=== PATIENT | female | born 1940 | race Caucasian/White ===

== ENCOUNTER 2017-01-02 13:55 | Inpatient (IN) | payer MEDICARE, OTHER ==
--- NOTE | ~2017-01-02 | HP ---
History And Physical [address] [place]. [address] NAME: RICHARD BEAL : 38 STATUS : ADM Jeremy PAT#: [id number] AGE: 76 ADM/REG DATE : 01/02/17 MR#: [id number] REPORT SERV DATE: 01/03/17 DICTATED BY: ARYA MUNOZ DATE: 01/03/17 REPORT STATUS : Draft TRANSCRIBED BY: MODL DATE: 01/03/17 DATE OF ADMISSION: 01/02/2017 CHIEF COMPLAINT: Palpitations and weakness. HISTORY OF PRESENT ILLNESS: The patient is a 76-year-old female with severe oxygen-dependent COPD and a history of paroxysmal atrial fibrillation and atrial flutter. The patient earlier on the day of admission developed acute onset of palpitations with sensation of weakness. Racing sensation in the chest. No chest pain. Emergency medical services were activated and on arrival, the patient was found to be in a rapid rhythm felt consistent with atrial flutter. No rhythm strips nor EKGs are available for review. Due to her severe weakness and tachycardic rhythm, she was administered adenosine by EMS without conversion. She subsequently underwent electrical cardioversion with conversion to sinus rhythm. Emergency room EMS radio report documents reported heart rate as high as 220 beats per minute. Atrial fibrillation written in different handwriting by the ER physician. However, the complaint is listed as "SVT." The patient has prior history of atrial flutter and in September was begun on sotalol with improved symptoms. The patient has chronic dyspnea, is home O2 dependent. She denies any changes in recent respiratory symptoms. Denies fever, chills, cough or productive sputum. PAST MEDICAL HISTORY: 1. Paroxysmal atrial fibrillation. 2. Paroxysmal atrial flutter. 3. Severe COPD, home O2 dependent. 4. Sjogren syndrome. 5. Hypertension. 6. Hyperlipidemia. 7. Diabetes mellitus. 8. Chronic kidney disease. PAST SURGICAL HISTORY: Previous mastectomy and vascular surgery. ALLERGIES: SULFA. FAMILY HISTORY: Family members with history of breast, gastric, and colorectal carcinoma. Multiple family members with hypertension. Patient with similar presentation with atrial flutter in 09/2016. The patient ultimately underwent cardioversion with successful conversion to sinus rhythm. At that time, begun on sotalol. Brother with and myocardial infarction at age 54. ADDITIONAL PAST MEDICAL HISTORY: 1. Coronary artery disease with remote angioplasty and stenting. History And Physical [address] [address] NAME: RICHARD BEAL : 39 STATUS : ADM Jeremy PAT#: [id number] AGE: 76 ADM/REG DATE : 01/02/17 MR#: [id number] REPORT SERV DATE: 01/03/17 DICTATED BY: ARYA MUNOZ DATE: 01/03/17 REPORT STATUS : Draft TRANSCRIBED BY: [facility] DATE: 01/03/17 2. Peripheral vascular disease with previous left subclavian stenting. 3. Low normal left ventricular systolic function by echocardiogram, 08/2016. 4. Breast carcinoma, status post left mastectomy in 2002 with chemotherapy. SOCIAL HISTORY: Remote smoker. REVIEW OF SYSTEMS: Negative for all organ systems except per the history of present illness. PHYSICAL EXAMINATION: VITALS: Blood pressure 131/58, pulse 82, respirations 20 and unlabored, saturating 100% on 4 L nasal cannula, weight 63 kg. GENERAL: Thin, elderly female, no acute distress, wearing nasal cannula oxygen. HEENT: Normal. NECK: Supple, no JVD or bruit, normal carotid upstroke bilaterally, no thyromegaly. LUNGS: Decreased air movement in all lung campo. CARDIOLOGY: Regular rhythm with frequent irregularities. Normal S1, S2. No thrill. No murmur, rubs or gallops, normal PMI. ABDOMEN: Bowel sounds positive, soft, nontender, and nondistended. No masses or aortic bruits. No hepatosplenomegaly or hepatojugular reflux. EXTREMITIES: No edema. Normal pulses. No clubbing or cyanosis. SKIN: Warm and dry, no significant rash. NEUROLOGIC: Alert and oriented x 3. Appropriate mood. LABORATORY DATA: Sodium 139, potassium 3.9, chloride 102, bicarb 19, creatinine 1.17, GFR 52, glucose 212, calcium 8.9, magnesium 2.1. WBC 16.7, hemoglobin 13.9, hematocrit 42.2, platelets 249,000. Troponin 0.04, 0.05, and 0.02. IMPRESSION: 1. Reported episode of atrial flutter with rapid ventricular rate. With subsequent electrical cardioversion to sinus rhythm. We have discontinued sotalol. We have initiated intravenous amiodarone load. 2. Trivial elevations in troponin-demand ischemia event. No evidence of myocardial infarction. 3. Chronic obstructive pulmonary disease-stable. Continue current home medications and oxygen. 4. Chronic anticoagulation. Continue current novel oral anticoagulant. PLAN: For discharge in 24 hours as the patient is stable and doing well and remains in sinus rhythm. CSL/DIOR Leanne Munoz M.D. History And Physical [address] [address] NAME: RICHARD BEAL : 39 STATUS : ADM Jeremy PAT#: [id number] AGE: 76 ADM/REG DATE : 01/02/17 MR#: [id number] REPORT SERV DATE: 01/03/17 DICTATED BY: ARYA MUNOZ DATE: 01/03/17 REPORT STATUS : Draft TRANSCRIBED BY: DIOR DATE: 01/03/17 / [id number] CC: Lainey Melton M.D.
[~2017-01-02 13:55] MED LIST: ADVAIR250 INH; AMARYL1 MG PO; ASAB PO; BETHAN25B PO; CALTRA600D PO; CARDCD360 PO; COREG12 PO; COREG3 PO; CRESTOR10 PO; DALIRESP500 MCG PO; DEMA20 PO; DIOV80 PO; DSS PO; FLOMAX4 PO; FLONASE NAS; FLORASTOR250 MG PO; FORADIL INH; KDUR20 PO; LACT30UDL PO; MEVACOR PO; MOMUD PO; NEUR100 PO; NEXIUM40 PO; NITROQUICK0.4 MG SL; NITROSTAT0.4 MG SL; NOVOLOG SC; P1 PO; P10 PO; PATADAY; PLAQ200B PO; PRADAXA150 MG PO; PRESERVISION A1 EAC1 PO; PRESERVISION A1 EACH PO; PROVENTSOL INH; RECLAST IV; REFRESH OPH; SENTAB PO; SORINE80 MG PO; SPIRIVA INH; T PO; T300 PO; ULTRAM50 PO; VENTOLIN HFA INH; VITAMIN D1000 UNI1 PO; VITAMIN D31000 UNIT PO; ZYRTEC ALLGY10 MG PO; [UNRECOGNIZED DRUG - OTHER] PO
[2017-01-02 13:56] LABS: BASOPHILS 0.1 %; BASOPHILS ABSOLUTE 0.02 10/3/uL (0.0-0.16); EOSINOPHILS 0.3 %; EOSINOPHILS ABSOLUTE 0.05 10/3/uL (0.0-0.53); HEMOGLOBIN 13.9 g/dL (12.0-16.0); IMMATURE GRANULOCYTES 0.4 %; IMMATURE GRANULOCYTES ABSOLUTE 0.07 10/3/uL (0.0-0.11); LYMPHOCYTES 16.5 %; LYMPHOCYTES ABSOLUTE 2.75 10/3/uL (0.67-4.30); MEAN CORPUS HGB CONC 32.9 g/dL (32.0-36.0); MEAN CORPUSCULAR HEMOGLOB 29.3 pg (26.0-34.0); MEAN PLATELET VOLUME 9.7 fL (9.2-13.0); MONOCYTES 9.1 %; MONOCYTES ABSOLUTE 1.52 10/3/uL (0.21-1.20); NEUTROPHILS 73.6 %; NEUTROPHILS ABSOLUTE 12.28 10/3/uL (2.02-8.40); PLATELET COUNT 249 10/3/uL (150-400); RBC DISTRIBUTION WIDTH 17.1 % (12.0-16.0); RED CELL COUNT 4.75 10/6/uL (4.0-5.6); WHITE BLOOD CELLS 16.7 10/3/uL (4.5-10.5)
[2017-01-02 14:02] LABS: HEMATOCRIT 42.2 % (36.0-48.0); MANUAL DIFF NO %; MEAN CORPUSCULAR VOLUME 88.8 fL (80-100)
[2017-01-02 14:04] LABS: INTERNATIONAL NORMAL RATI 1.5 UNITS (-); PROTIME (NOT ORD) 18.2 SEC (12.0-14.5)
[2017-01-02 14:05] LABS: PARTIAL THROMBO TIME 43.9 SEC (22.5-37.2)
[2017-01-02 14:10] LABS: CALCIUM, SERUM 8.9 MG/DL (8.5-10.4); CHEST PAIN PROFILE TAT 0 Hrs 18 Mins; CHLORIDE, SERUM 102 MMOL/L (96-112); CREATININE 1.17 MG/DL (0.55-1.02); GFR AFRICAN AMERICAN 52 ML/MIN (>=60); GFR NON AFRICAN AMERICAN 45 ML/MIN (>=60); POTASSIUM, SERUM 3.9 MMOL/L (3.5-5.3); TROPONIN I 0.04 NG/ML (<0.05)
[2017-01-02 14:12] LABS: BUN (BLOOD UREA NITROGEN) 19 MG/DL (6-23); CO2 (CARBON DIOXIDE) 30 MMOL/L (24-34); GLUCOSE, SERUM 212 MG/DL (60-99); SODIUM, SERUM 139 MMOL/L (135-148)
[2017-01-02 14:17] LABS: ASCORBIC ACID (UR NOT ORDER) 20 (NEG); BILIRUBIN, URINE NEGATIVE (NEG); ER URINALYSIS TAT 0 Hrs 08 Mins; KETONE, URINE NEGATIVE (NEG); LEUKOCYTE ESTERASE(NOT OR NEG (NEG); NITRITE (URINE) NEG (NEG); WBC (NOT ORDERED) (RFLEX) 1 (0-5)
[2017-01-02] MEDS ORDERED: REFRESH OPH (17:05)
[2017-01-04 06:31] LABS: BUN (BLOOD UREA NITROGEN) 15 MG/DL (6-23); CALCIUM, SERUM 9.6 MG/DL (8.5-10.4); CHLORIDE, SERUM 106 MMOL/L (96-112); CO2 (CARBON DIOXIDE) 30 MMOL/L (24-34); CREATININE 0.86 MG/DL (0.55-1.02); GFR AFRICAN AMERICAN 76 ML/MIN (>=60); GFR NON AFRICAN AMERICAN 65 ML/MIN (>=60); GLUCOSE, SERUM 70 MG/DL (60-99); POTASSIUM, SERUM 3.7 MMOL/L (3.5-5.3); SODIUM, SERUM 142 MMOL/L (135-148)
[2017-01-04] MEDS ORDERED: CORDARONE PO (11:47)
[2017-05-25] MEDS ORDERED: HALF81 PO (07:46)
[2017-05-25] MEDS ORDERED: ADVAIR250 INH (07:47)
[2017-05-25] MEDS ORDERED: ALBUTEROL0.083 % INH (07:47)
[2017-05-25] MEDS ORDERED: DSS PO (07:48)
[2017-05-25] MEDS ORDERED: CULTURELLE1 EACH PO (07:48)
[2017-05-25] MEDS ORDERED: CALTRA600D PO (07:48)
[2017-05-25] MEDS ORDERED: PRADAXA75 MG PO (07:49)
[2017-05-25] MEDS ORDERED: NEUR100 PO (07:49)
[2017-05-25] MEDS ORDERED: CARDCD180 PO (07:49)
[2017-05-25] MEDS ORDERED: AMARYL1 MG PO (07:50)
[2017-05-25] MEDS ORDERED: DRONED400 PO (07:50)
[2017-05-25] MEDS ORDERED: NEXIUM40 PO (07:50)
[2017-05-25] MEDS ORDERED: P10 PO (07:51)
[2017-05-25] MEDS ORDERED: KLOR-CON M2020 MEQ PO (07:51)
[2017-05-25] MEDS ORDERED: PRESERVISION A1 EACH PO (07:51)
[2017-05-25] MEDS ORDERED: SPIRIVA INH (07:52)
[2017-05-25] MEDS ORDERED: DEMA10T PO (07:52)
[2017-05-25] MEDS ORDERED: DALIRESP500 MCG PO (07:52)
[2017-05-25] MEDS ORDERED: CRESTOR10 PO (07:52)
[2017-05-25] MEDS ORDERED: VITE PO (07:54)
[2017-05-25] MEDS ORDERED: VITC500 PO (07:54)
[2017-05-25] MEDS ORDERED: [UNRECOGNIZED DRUG - MIXTURE] PO (07:55)
[2017-05-25] MEDS ORDERED: ZYRTEC ALLGY10 MG PO (07:56)
[2017-05-25] MEDS ORDERED: T PO (07:56)
[2017-05-25] MEDS ORDERED: ULTRAM50 PO (07:57)
[2017-05-25] MEDS ORDERED: VENTOLIN HFA INH (07:57)
[2017-05-25] MEDS ORDERED: ATV.5 PO (07:57)
[2017-05-25] MEDS ORDERED: ATRONASAL6 NAS (07:58)
== END 2017-01-04 13:41 | disposition home or self-care (01) | DRG 310 ==
LOC: ER 13:55 → CDU1 18:15 → 5NO 01-03 10:11
PROVIDERS: Emergency Medicine; Internal Medicine Cardiovascular Disease
DX: I48.0 Paroxysmal atrial fibrillation (principal); Z99.81 Dependence on supplemental oxygen; E11.22 Type 2 diabetes mellitus with diabetic chronic kidney disease; J44.9 Chronic obstructive pulmonary disease, unspecified; M35.00 Sjogren syndrome, unspecified; Z79.01 Long term (current) use of anticoagulants; I48.92 Unspecified atrial flutter; E78.5 Hyperlipidemia, unspecified; I12.9 Hypertensive chronic kidney disease with stage 1 through stage 4 chronic kidney disease, or unspecified chronic kidney disease; N18.9 Chronic kidney disease, unspecified; Z88.2 Allergy status to sulfonamides; Z95.5 Presence of coronary angioplasty implant and graft
CPT/HCPCS: 71010; 80048; 81001; 82962; 83735; 84443; 84484; 85025; 85610; 85730; 93005; 94640; 99285; A9270-GY; J0282; J2760; J3473

== ENCOUNTER 2017-02-01 15:25 | Inpatient (IN) | payer MEDICARE, OTHER ==
--- NOTE | ~2017-02-01 | HP ---
History And Physical [address] [facility] [place]. [address] NAME: RICHARD BEAL : 39 STATUS : ADM IN [facility]#: [id number] AGE: 76 ADM/REG DATE : 02/01/17 MR#: [id number] REPORT SERV DATE: 02/02/17 DICTATED BY: SLAVA RODRIGUEZ DATE: 02/02/17 REPORT STATUS : Draft TRANSCRIBED BY: [facility] DATE: 02/02/17 DATE OF ADMISSION: 02/01/2017 CHIEF COMPLAINT: A 76-year-old female, presenting with hypoxic respiratory failure and pneumonia. HISTORY OF PRESENTING ILLNESS: The patient's history was obtained through careful interview with the patient, son-in-law, and neighbor, coupled with review of stylemarks and [facility] medical records. The patient for a few days has had "hoarseness" and some subjective fevers and chills and "something in my chest" that has been rattling with congestion, but she has not been too ill. In fact, on the night prior to admission, she had gone out too late with some friends into the evening and had eaten some ice cream and been at a restaurant. When she got home, she felt full and tired, but not too ill. Then, she recalls that about 4 a.m. in the morning, she felt nauseated, lightheaded, tried to get out of bed and collapsed to the ground. She states that she was on the ground, unable to get up for several hours. In fact, she thinks it was not until the afternoon around 1 p.m. that she was finally able to get up into her bed again and just lay there until family was able to find her. Her neighbor was trying to get a hold of her by telephone throughout the day, but she would not answer, and when her son-in-law and the neighbor finally were able to check on her, they found her lying in the bed completely unresponsive. The son states that she looked purplish with cyanotic changes and ashen and seemed to have respiratory distress. Her O2 saturation was about 70% on room air when the ambulance arrived. The patient had one diarrhea bowel movement last night, and when the family came to check on her, she had lost continence and soiled herself. She describes left hip discomfort, chronic pain, 3 to 4/10 severity, associated with lower back pain as well. No nausea or vomiting now. No fevers or chills now. REVIEW OF SYSTEMS: Otherwise, 14-point review of systems was obtained and was negative. PAST MEDICAL HISTORY: 1. COPD. Seen by Dr. Newberry. 2. Atrial fibrillation. Seen by Dr. Hallman. 3. Coronary artery disease, status post stent placement. 4. Diabetes. 5. Breast cancer, status post surgical resection in 2002 and chemotherapy. History And Physical [address] [address] NAME: RICHARD BEAL : 39 STATUS : ADM IN [facility]#: [id number] AGE: 76 ADM/REG DATE : 02/01/17 MR#: [id number] REPORT SERV DATE: 02/02/17 DICTATED BY: SLAVA RODRIGUEZ DATE: 02/02/17 REPORT STATUS : Draft TRANSCRIBED BY: DIOR DATE: 02/02/17 6. Hypertension. 7. Sjogren's. 8. Left subclavian stent. 9. Colon polyps. Seen by Dr. Oviedo. 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 PAST SURGICAL HISTORY: 1. Mastectomy in 2002. 2. Vascular surgery for left radial artery disease. 3. Cholecystectomy. ALLERGIES: SULFA. SOCIAL HISTORY: Quit smoking years ago. Drinks alcohol socially, but not daily or in excess. Was . Remarried. Now has been a since August 2016. She had lived in [place], [place] until two weeks ago when she moved to a new home in [place] close to her family. She has two children. Her son-in-law is Diaz Ferris, a local physician. 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 FAMILY HISTORY: Breast cancer, gastric cancer, colorectal cancer. Father with acute renal failure. Brother at 54 years of age of myocardial infarction. CURRENT MEDICATIONS: Include Tylenol, albuterol, amiodarone 200 mg p.o. b.i.d., aspirin 81 mg p.o. daily, calcium with vitamin D, Zyrtec 10 mg p.o. daily, vitamin D, Pradaxa 150 mg p.o. b.i.d., diltiazem extended release 360 mg p.o. daily, Nexium 40 mg p.o. daily, Advair inhaled twice a day, Neurontin 200 mg p.o. at bedtime, Amaryl 2 mg every morning, Ativan 0.5 mg p.o. b.i.d., nitroglycerin, potassium 20 mEq p.o. b.i.d., prednisone 10 mg p.o. daily, Daliresp 500 mcg p.o. daily, Crestor 10 mg p.o. daily, Florastor 250 mg p.o. b.i.d., Spiriva inhaled daily, Demadex 20 mg p.o. daily, tramadol 50 mg p.o. b.i.d., multivitamin. PHYSICAL EXAMINATION: VITAL SIGNS: Temperature 98.5, pulse 102, blood pressure 124/46, respiratory rate 34, O2 saturation 79% on 15 L nasal cannula. GENERAL: A very ill and toxic-appearing female, in evidence of distress secondary to shortness of breath. HEENT: Pupils equal, round, and reactive to light. No conjunctival pallor. No scleral icterus. Nares are patent. Oropharynx is clear of obstruction. Dry mucous membranes. Cracking of the lips and tongue. NECK: Trachea midline. No thyromegaly. LYMPH: No cervical lymphadenopathy. No supraclavicular lymphadenopathy. RESPIRATORY: The patient has absent breath sounds at the right base of lung with focal egophony. Scattered rhonchi are noted throughout. No wheezes. No rales. The patient has quite labored respiratory effort, heaving with her abdomen and shoulders. CARDIOVASCULAR: Tachycardic. Regular rhythm. No murmurs, rubs, or gallops. No current extremity edema is appreciated. ABDOMEN: Soft, nontender, nondistended. Normal bowel sounds auscultated throughout. No hepatosplenomegaly. History And Physical [address] [address] NAME: RICHARD BEAL : 39 STATUS : ADM IN [facility]#: [id number] AGE: 76 ADM/REG DATE : 02/01/17 MR#: [id number] REPORT SERV DATE: 02/02/17 DICTATED BY: SLAVA RODRIGUEZ DATE: 02/02/17 REPORT STATUS : Draft TRANSCRIBED BY: DIOR DATE: 02/02/17 DERMATOLOGICAL: Warm and dry extremities. No pallor. No cyanosis. PSYCHIATRIC: A flat affect. Irritable mood. Alert now, but very lethargic. She is poorly oriented to her recent history, but is oriented currently to time and location. LABORATORY DATA: ABG demonstrates pH 7.43, a PaCO2 of 44, a PaO2 of 64, and a bicarb of 29. White blood cell count 27.4 with 50% bands, hemoglobin 12, hematocrit 38, platelets 306. Sodium 144, potassium 3.7, chloride 103, bicarb 34, BUN 23, creatinine 2.03 from baseline creatinine of 0.8, glucose 86. CPK 509. Brain natriuretic peptide 250. Albumin 3.0. Liver enzymes within normal limits. STUDIES: 1. Chest x-ray per my own evaluation shows a dense right peripheral lower lung pneumonia, but also patchy infiltrates throughout bilateral lung campo. 2. EKG by my own evaluation shows sinus tachycardia, premature atrial complexes, and right axis deviation. ASSESSMENT AND PLAN: 1. Severe sepsis. Lactic acid pending. The patient has encephalopathy, acute renal failure, hypoxia, white blood cell count of 27.4, 50% bands, and tachycardia and tachypnea. Check blood cultures. Place on IV antibiotics. Admit to the IMCU. 2. Pneumonia. Check blood cultures. Place on IV cefepime, IV vancomycin. Check swallow studies. 3. Hypoxic respiratory failure. Place on BiPAP. Consult Dr. Newberry, shank rander. 4. Acute renal failure. Place on IV fluids. The patient has mild rhabdomyolysis. We will hold torsemide. 5. Chronic obstructive pulmonary disease exacerbation. Place on IV Solu-Medrol, Duo nebulizers. 6. Atrial fibrillation, chronic. Consult Cardiology per family request, Dr. Hallman. Continue Pradaxa. KPL/MODL Slava Rodriguez M.D. / [id number] CC: Lainey Hancock M.D. Carlos Baleeiro, M.D. Mark Thel, M.D.
--- NOTE | ~2017-02-01 | CN ---
Consultation Report [facility] [address] [place]. [address] NAME: RICHARD STANLEY : 38 STATUS : ADM IN [facility]#: [id number] AGE: 76 ADM/REG DATE : 02/01/17 MR#: [id number] REPORT SERV DATE: 02/02/17 DICTATED BY: JOSE ELIAS HASKINS DATE: 02/02/17 REPORT STATUS : Draft TRANSCRIBED BY: MODL DATE: 02/02/17 CARDIOLOGY CONSULT DATE OF CONSULTATION: 02/02/2017 The patient admitted yesterday to Dr. Mondragon. HISTORY OF PRESENT ILLNESS: Mrs. Stanley is a 76-year-old white female, who has severe COPD, oxygen dependent. She also has history of paroxysmal atrial fibrillation and was here a month ago with rapid rate. Her medicine was adjusted and she was placed on amiodarone and Pradaxa. She comes back in now with pneumonia, sepsis, acute kidney injury, demand troponin of 0.79, and normal sinus rhythm with a heart rate of 84. She tells me a few days ago, she felt her atrial fibrillation racing. PAST MEDICAL HISTORY: Atrial fibrillation, severe COPD, Sjogren's, hypertension, dyslipidemia, diabetes, and chronic kidney disease. ALLERGIES: SULFA. MEDICATIONS: At home include acetaminophen, albuterol, amiodarone 200 mg twice a day, aspirin, calcium D, cetirizine, cholecalciferol, Pradaxa, diltiazem, Nexium, Advair, Neurontin, Amaryl, GenTeal, Ativan, nitroglycerin as needed, potassium, prednisone, Daliresp, Crestor, Florastor, Spiriva, Demodex, tramadol, and multivitamin. SOCIAL HISTORY: She is a nonsmoker. SURGICAL HISTORY: Prior mastectomy and vascular surgery. FAMILY HISTORY: Significant for breast, gastric, and colorectal carcinoma as well as hypertension. REVIEW OF SYSTEMS: Otherwise, all negative. PHYSICAL EXAMINATION: VITAL SIGNS: Her current heart rate is in the 80s. Her blood pressure is around 200 systolic. GENERAL: The patient is a mildly tachypneic white female, alert and oriented x3. HEENT: Pupils equal, round, and reactive to light and accommodation. Extraocular muscles are intact. NECK: Supple. Trachea midline. No carotid bruits. CHEST: She sounds tight with diminished movement of air. HEART: Regular rate and rhythm. No significant murmur. ABDOMEN: Soft, nontender. EXTREMITIES: No clubbing, cyanosis, or edema. Consultation Report [address] [place]. [address] NAME: RICHARD STANLEY : 38 STATUS : ADM IN [facility]#: [id number] AGE: 76 ADM/REG DATE : 02/01/17 MR#: [id number] REPORT SERV DATE: 02/02/17 DICTATED BY: JOSE ELIAS HASKINS DATE: 02/02/17 REPORT STATUS : Draft TRANSCRIBED BY: DIOR DATE: 02/02/17 NEURO: Nonfocal. DATA: We have the EKG that shows sinus rhythm, ventricular rate there around 98, nonspecific ST and T-wave changes in the inferolateral leads. Blood work showing a troponin of 0.79 and her creatinine is above 2. She has a hemoglobin of 8. CLINICAL IMPRESSIONS: 1. Pneumonia, sepsis, acute kidney injury, and demand troponin of 0.79. 2. Oxygen-dependent chronic obstructive pulmonary disease. 3. Chronic atrial fibrillation, on Pradaxa, amiodarone, and calcium channel estrellita. 4. Sjogren's. 5. Hypertension, dyslipidemia, diabetes, chronic kidney disease. 6. Anemia with hemoglobin of 8. PLAN: 1. Decrease Pradaxa 75 mg twice a day given the increasing creatinine and decrease in hemoglobin. 2. Heme check stools. 3. Antibiotics and pulmonary toilet as you are doing. I will follow along with you. F/DIOR Jose Elias Haskins M.D. / [id number] CC: Lainey Hancock M.D. Mark Thel, M.D.
--- NOTE | ~2017-02-01 | IDS ---
Interim Discharge Summary [facility] [address] [place]. [address] NAME: RICHARD BEAL : 38 STATUS : ADM IN [facility]#: [id number] AGE: 76 ADM/REG DATE : 02/01/17 MR#: [id number] REPORT SERV DATE: 02/06/17 DICTATED BY: Alvarez KWONG DATE: 02/06/17 REPORT STATUS : Draft TRANSCRIBED BY: MODL DATE: 02/06/17 ADMISSION DATE: 02/01/2017 DISCHARGE DATE: DIAGNOSES AT THE TIME OF INTERIM SUMMARY: 1. Severe sepsis present on admission, resolved. 2. Dense right pneumonia present on admission, resolved. 3. Acute on chronic respiratory failure with hypoxia. 4. Acute kidney injury, resolved. 5. Coronary artery disease with stents. 6. Chronic atrial fibrillation, on Pradaxa. 7. Insulin-requiring diabetes. ACTIVE CONSULTS: Pulmonology. PROCEDURES: None. BRIEF SUMMARY: 76-year-old female with O2-dependent COPD, was admitted with sepsis and pneumonia on the right side, and placed in intermediate care on intermittent BiPAP and aggressive broad-spectrum antimicrobial therapy with aggressive pulmonary toilet and aggressive bronchodilator therapy. The patient had a very elevated WBC count and procalcitonin on admission on therapy. These numbers have trended toward normal. She is markedly clinically improved and has been transitioned to [address] [place] [address]. She is currently on day 6 or 7 of her IV antimicrobial therapy. Strep and Legionella urinary antigens have been negative, and her cultures have remained negative. The tentative plan at this point is to continue with her aggressive pulmonary care to complete her antibiotic course and have both Physical and Occupational therapy slowly work for her to regain her functional status. It is likely that once her antibiotics are completed, she can be transitioned to the home setting likely with the addition of home health care. We will reassess the patient's plans for discharge after she completes her antimicrobial therapy on 02/07/2017 with possible plans for discharge either on 02/08/2017 or 02/09/2017 depending on her progress. Another member of the hospitalist team will see the patient starting 02/07/2017. We have followup lab work ordered. Her last chest x-ray was done 02/06/2017 and shows clearing of her right-sided infiltrate. PENDING SALE TO [facility]/MODL Alvarez Kwong M.D. / [id number] CC: Alvarez Kwong M.D.
--- NOTE | ~2017-02-01 | CN ---
Consultation Report [facility] [address] [place]. [address] NAME: HORTENCIA STANLEY : 39 STATUS : ADM IN PAT#: [id number] AGE: 76 ADM/REG DATE : 02/01/17 MR#: [id number] REPORT SERV DATE: 02/02/17 DICTATED BY: ULICES WALTERS DATE: 02/02/17 REPORT STATUS : Draft TRANSCRIBED BY: MODL DATE: 02/02/17 CONSULT NOTE DATE OF CONSULTATION: 02/02/2017 CHIEF COMPLAINT: Respiratory failure in a patient with acute right lower lobe pneumonia. HISTORY OF PRESENT ILLNESS: Mrs. Hortencia Stanley is a very pleasant 76-year-old white female with a past medical history significant for atrial fibrillation, COPD, and coronary artery disease, who presents to [facility]'s Emergency Room after being found unresponsive by her family. It should be noted that the patient was hospitalized as recently as December, when she underwent a cardioversion procedure. Mrs. Stanley is followed by Dr. Gorge Newberry, in our outpatient clinic. She is on a pulmonary regimen of albuterol, Advair, and Spiriva, of which she is compliant. She is on chronic oxygen at 2 L. The patient quit smoking approximately fourteen years ago, prior to this time, she smoked about a pack a day for a period of forty years. She denies symptomatology related to obstructive sleep apnea. She describes her exercise tolerance as being somewhat limited, being able to ambulate around her home before needing to stop and take a break. As previously mentioned, the patient has had some issues with her atrial fibrillation as of late. That being said, she has largely done fairly well as an outpatient. More recently, she has began to have some hoarseness in her throat as well as an overall feeling of malaise. This became somewhat worse. She did have an acute episode after dining out with some friends, where she essentially went home and collapsed in the floor. Apparently, she was able to climb back into her bed and was found some time later by her family members. At that time, she was somewhat unresponsive with a reportedly very low oxygen saturation. Emergency Service was called and the patient was brought to the [facility]'s Emergency Room. Upon arrival, she was found to be hypoxemic. Initial blood work [place] [address]. Her procalcitonin was 106.91. She was placed on aggressive antibiotic therapy as well as BiPAP for her hypoxemia and was transferred to the [facility]. For the aforementioned reasons, she has been referred to the Pulmonary Service for further assessment. Currently, Mrs. Stanley is off the BiPAP with good oxygenation saturations on 5 L. She does have some shortness of breath. This is worse on exertion and relieved by rest. She feels some heaviness in her chest. She denies any productive cough at this time. She denies any wheezing in her chest. She denies any recent episodes of hemoptysis. She denies a history of recurrent pneumonias. She does have known COPD. The patient does have known atrial fibrillation as well as coronary artery disease. She currently denies any murmurs, angina, or palpitations. She denies any worsening lower extremity edema, orthopnea, or paroxysmal nocturnal dyspnea. Consultation Report [address] [place]. [address] NAME: HORTENCIA STANLEY : 39 STATUS : ADM IN [facility]#: [id number] AGE: 76 ADM/REG DATE : 02/01/17 MR#: [id number] REPORT SERV DATE: 02/02/17 DICTATED BY: ULICES WALTERS DATE: 02/02/17 REPORT STATUS : Draft TRANSCRIBED BY: DIOR DATE: 02/02/17 In regard to constitutional symptoms, she has had general malaise and fatigue. She currently denies any recent fever or chills. She has no chest pain, abdominal pain, or edema. PAST MEDICAL HISTORY: 1. COPD. 2. Atrial fibrillation. 3. Coronary artery disease. 4. Diabetes mellitus. 5. History of breast cancer. 6. Hypertension. 7. Sjogren's. 8. History of left subclavian stent placement. PAST SURGICAL HISTORY: 1. Cholecystectomy. 2. Mastectomy. 3. Vascular surgery for left subclavian stent placement. FAMILY HISTORY: The patient denies family history of lung disease. SOCIAL HISTORY: The patient is recently . She has two children, who are in good health. 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 She denies any overt or known exposures to dust, silica, or asbestos. TOBACCO/ALCOHOL: As previously mentioned, the patient quit smoking approximately ten years ago, prior to this time, she smoked approximately one pack a day for a period of ten years. She denies any excessive alcohol intake or illicit drug use. MEDICATIONS: Current medications include Amaryl 2 mg, aspirin 81 mg, Cardizem 180 mg, Claritin 10 mg, Cordarone 200 mg, Dulera, DuoNebs, Maxipime, Neurontin 100 mg, Pradaxa 150 mg, Protonix 40 mg, Solu-Cortef 100 mg, vitamin D. ALLERGIES: THE PATIENT HAS KNOWN ALLERGIES TO SULFA. REVIEW OF SYSTEMS: A complete review of systems was performed with pertinent positives and negatives contained within the body of the HPI. PHYSICAL EXAMINATION: VITAL SIGNS: Blood pressure is 97/56, heart rate is 81, T-max is 99.2, respiratory rate is 26, SpO2 is 96% on 5 L nasal cannula. GENERAL: Mrs. Hortencia Stanley is a very pleasant, 76-year-old white female, who is not currently exhibiting any signs of acute distress. SKIN: Skin with appropriate texture and turgor. No rashes, lesions, or ulcers. Consultation Report [address] [address] NAME: HORTENCIA STANLEY : 39 STATUS : ADM IN [facility]#: [id number] AGE: 76 ADM/REG DATE : 02/01/17 MR#: [id number] REPORT SERV DATE: 02/02/17 DICTATED BY: ULICES WALTERS DATE: 02/02/17 REPORT STATUS : Draft TRANSCRIBED BY: DIOR DATE: 02/02/17 HEENT: Head, skull is normocephalic, atraumatic. No masses or lesions. Eyes, sclerae anicteric. Ears, hearing grossly intact. Nose, bilateral nasal patency. Throat, dentition noted. Lips, oral mucosa, tongue, palate, and pharynx somewhat dry. NECK: Neck is supple. THORAX/LUNGS: Thorax is symmetric with equal chest rise. There are few scattered rhonchi and faint expiratory wheezes. Diminished breath sounds in the right lower lung field. CARDIOVASCULAR: Irregular rhythm. Rate controlled. No murmurs, rubs, or gallops. ABDOMEN: Soft. Nondistended, nontender. PERIPHERAL VASCULAR: No edema. MUSCULOSKELETAL: Full AROM and PROM in all joints. NEUROLOGIC: Cranial nerves 2-12 grossly intact. PSYCHIATRIC: The patient demonstrates good judgment and insight. ACCESSORY DATA: Reveals a creatinine of 2.38, procalcitonin is 106.91, lactate is 5.2. BNP is 134.8. Troponin is 0.76. Arterial blood gas reveals a pH of 7.40, PaCO2 of 40, PaO2 of 86, and a bicarb of 24.1 on BiPAP 12/[place] [address], hemoglobin and hematocrit is 8.7 and 28.4. Chest x-ray reveals an acute right lower lobe pneumonia. Echocardiogram performed in 09/2016 reveals a left ventricular ejection fraction of 55%. There is signs of right atrial and ventricular dilation. IMPRESSION: 1. Right-sided acute bacterial pneumonia. 2. Acute exacerbation of chronic obstructive pulmonary disease. 3. Atrial fibrillation. 4. Acute on chronic hypoxemic respiratory failure. 5. Diabetes mellitus. 6. Acute kidney injury. PLAN: 1. At this time, the patient has been appropriately placed on vancomycin and Maxipime. We will recheck a procalcitonin as well as following white blood cell counts for further therapies. We will provide the patient with a flutter valve in hopes to obtaining a sputum culture for Gram stain and sensitivities. We will encourage early mobilization as well as other modes of pulmonary toilet. 2. In regard to the patient's acute exacerbation of COPD, we will provide her steroids, and a full armamentarium of nebulized medications. 3. In regard to the patient's history of arrhythmias, she is currently being seen by the Cardiology Service as well. 4. In regard to her acute kidney injury, we will attempt to fluid resuscitate her as appropriate. The aforementioned impression and plan has been discussed with Dr. Raya, who will follow further recommendations. We thank you for this consult and look forward to participating in the care of Mrs. Stanley. Consultation Report [address] [address] NAME: HORTENCIA STANLEY : 39 STATUS : ADM IN [facility]#: [id number] AGE: 76 ADM/REG DATE : 02/01/17 MR#: [id number] REPORT SERV DATE: 02/02/17 DICTATED BY: ULICES WALTERS DATE: 02/02/17 REPORT STATUS : Draft TRANSCRIBED BY: DIOR DATE: 02/02/17 GBS/MODL Ulices Walters PA-C / [id number] CC: Lainey Hancock M.D.
--- NOTE | ~2017-02-01 | DS ---
Discharge Summary [place] [id number] [place]. [address] NAME: RICHARD STANLEY : 38 STATUS : DIS IN PAT#: [id number] AGE: 76 ADM/REG DATE : 02/01/17 MR#: [id number] REPORT SERV DATE: 02/12/17 DICTATED BY: Alvarez KWONG DATE: 02/11/17 REPORT STATUS : Draft TRANSCRIBED BY: MODL DATE: 02/11/17 ADMISSION DATE: 02/01/2017 DISCHARGE DATE: 02/11/2017 The patient was admitted to the Hospitalist Service. CONSULTANTS: Dr. Bennie Hallman, Cardiology and Dr. Ryan Hernandez, Pulmonology. DISCHARGE DIAGNOSES: 1. Severe sepsis, present on arrival, resolved. 2. Right pneumonia, present on arrival, resolved. 3. Acute on chronic respiratory failure with hypoxia. 4. Acute exacerbation of chronic obstructive pulmonary disease. 5. Chronic atrial fibrillation with paroxysmal atrial tachycardia, now in sinus rhythm. 6. Diabetes mellitus, type 2 with hyperglycemia and hypoglycemia. 7. History of coronary artery disease, status post stents. 8. Hypertension. 9. Acute kidney injury, resolved. Please refer to admission H and P by Dr. Jasvir Mondragon and interim discharge summary by Dr. Ryan Kwong on 02/06/2017. This discharge summary will cover dates 02/07/2017 through 02/11/2017. Briefly Ms. Stanley is a 76-year-old female who is O2-dependent with known COPD. She was admitted to the hospital with sepsis and right-sided pneumonia. Initially, she was placed in the intermediate care unit and was using intermittent BiPAP. She received treatment for her pneumonia with aggressive broad-spectrum antibiotics and aggressive pulmonary toilet with bronchodilator therapy. She has improved significantly and is at her baseline with her respiratory status. I initially saw the patient for the first time on 02/09/2017. She had been experiencing some hypotension earlier in the day. She was started on three new antihypertensives during this hospitalization, which were held on 02/09/2017, these included Avapro and hydralazine. She was also started on metoprolol this admission, we continued that with parameters and was holding her home dose Cardizem as well. Her blood pressure at its lowest was in the 80s systolic and responded nicely with fluid boluses. Her IV antibiotics were discontinued on 02/09/2017. She was also experiencing some hypoglycemia with her 2 mg of Amaryl therefore, the Amaryl was held. Over the next two days, she continued to improve nicely. Her blood pressure was normotensive and remained in the 130s and 140s systolic on 02/10/2017 and on 02/11/2017, 140s to 160s systolic. Therefore, her Cardizem was resumed at half of her home dose at 180 mg p.o. daily. We will also continue her metoprolol, which was started here in the hospital. Her blood glucose this morning was 133. At its lowest yesterday, it was 67 at 6:00 a.m. in the morning. Again, her Amaryl dose was adjusted here in the hospital. Cardiology signed off today and Pulmonary signed off yesterday. When I saw her this morning, she was in no acute distress. She states that she had no shortness of breath or chest pain. No nausea or vomiting. She is eating her breakfast without difficulty and basically at her baseline breathing. Her O2 saturation was 94% on 3 L nasal cannula. Her vital signs again, blood pressure this morning was 167/86, pulse 79, respirations 18. She is afebrile and O2 saturation again 94% on 3 L. Her lungs Discharge Summary [address] [address] NAME: RICHARD STANLEY : 38 STATUS : DIS IN PAT#: [id number] AGE: 76 ADM/REG DATE : 02/01/17 MR#: [id number] REPORT SERV DATE: 02/12/17 DICTATED BY: Alvarez KWONG DATE: 02/11/17 REPORT STATUS : Draft TRANSCRIBED BY: DIOR DATE: 02/11/17 were diminished, we thought she had a few scattered rhonchi. She had an occasional nonproductive cough. Telemetry and auscultation reveals sinus rhythm, heart rate in the 60s. Her abdomen was soft, nontender. All peripheral pulses palpable. No edema, clubbing, or cyanosis. DISCHARGE LABORATORY STUDIES: Basic metabolic panel revealed a sodium of 136, potassium 4.3, chloride 101, BUN 23, creatinine 1.07, GFR 50, glucose 148, calcium 8.8. CBC on 02/10/2017 revealed a white count of 12.3, hemoglobin 10.6, hematocrit 33.1, and platelets 287,000. Therefore, it was felt that Ms. Stanley received maximum treatment and was stable for transfer to [facility] to complete her rehabilitation. Therefore, on the afternoon of 02/11/2017, she was transferred to [facility] in stable condition. DISCHARGE INSTRUCTIONS: 1. Diet: Cardiac 1800 calorie ADA diet is recommended. 2. Activity: PT and OT to evaluate. DISCHARGE MEDICATIONS: 1. Aspirin 81 mg p.o. daily. 2. Caltrate 600 mg plus D p.o. daily with breakfast and supper. 3. Vitamin D3 1000 international units p.o. daily. 4. Pradaxa 150 mg p.o. b.i.d. 5. Multaq 400 mg p.o. b.i.d. 6. Neurontin 200 mg p.o. daily at bedtime. 7. Amaryl 1 mg p.o. daily with breakfast. 8. Sliding scale insulin level 2 q.a.c. with no sliding scale insulin coverage at bedtime. 9. Zyrtec 10 mg p.o. daily. 10.Lopressor 12.5 mg p.o. b.i.d., hold for heart rate of less than 60 and/or systolic blood pressure of less than 110. 11.Nexium 40 mg p.o. daily before breakfast. 12.Spiriva 1 capsule inhaled daily. 13.Deltasone 10 mg p.o. daily with lunch. 14.Albuterol HFA inhaler two puffs b.i.d. p.r.n. 15.Advair Diskus 250/50 one puff b.i.d. 16.Albuterol nebulizer treatments q.4 hours p.r.n. 17.Tylenol 650 mg p.o. or p.r. q.4 hours p.r.n. 18.Dulcolax 10 mg suppository p.r.n. 19.Colace 100 mg p.o. b.i.d. 20.Glucose tabs p.r.n. hypoglycemia protocol. 21.Ativan 0.5 mg p.o. every 6 hours p.r.n. 22.Nitroglycerin 0.4 mg sublingual p.r.n. chest pain. 23.Zofran 4 mg p.o. or sublingual q.4 hours p.r.n. 24.Tramadol 50 mg p.o. t.i.d. p.r.n. 25.Klor-Con 20 mEq daily. 26.Demadex 20 mg p.o. daily. 27.Daliresp 500 mcg p.o. daily with lunch. 28.Cardizem CD 180 mg p.o. daily, hold for systolic blood pressure less than or equal to 120. [facility] provider to adjust as needed. Discharge Summary [address] [address] NAME: RICHARD STANLEY : 38 STATUS : DIS IN PAT#: [id number] AGE: 76 ADM/REG DATE : 02/01/17 MR#: [id number] REPORT SERV DATE: 02/12/17 DICTATED BY: Alvarez KWONG DATE: 02/11/17 REPORT STATUS : Draft TRANSCRIBED BY: DIOR DATE: 02/11/17 29.Crestor 10 mg p.o. daily at bedtime. 30.Florastor 250 mg p.o. b.i.d. 31.GenTeal eye drops four times a day ,both eyes. Other discharge instructions include the patient will follow up with her primary care provider, Dr. Mike Wilson, after discharge from [facility]. She will also follow up with Pulmonary, Anaya Potter, nurse practitioner or Dr. Newberry in three to four weeks. She will also follow up with her quality improvement analyst, Dr. Bennie Hallman in four weeks. DICTATED BY: MARQUISE Santana DICTATED FOR: Lainey Hancock/DIOR MARQUISE Santana Alvarez Kwong M.D. / [id number] CC: Lainey Hancock M.D. Mark Thel, M.D. Carlos Baleeiro, M.D.
[~2017-02-01 15:25] MED LIST changes: +CORDARONE PO
[2017-02-01] MEDS ORDERED: CORDARONE PO (16:08)
[2017-02-01] MEDS ORDERED: ADVAIR250 INH (16:09)
[2017-02-01] MEDS ORDERED: NEUR100 PO (16:10)
[2017-02-01] MEDS ORDERED: PRADAXA150 MG PO (16:10)
[2017-02-01] MEDS ORDERED: ATV.5 PO (16:11)
[2017-02-01] MEDS ORDERED: KLOR-CON M2020 MEQ PO (16:11)
[2017-02-01] MEDS ORDERED: DEMA20 PO (16:12)
[2017-02-01] MEDS ORDERED: DALIRESP500 MCG PO (16:12)
[2017-02-01] MEDS ORDERED: AMARYL2 PO (16:12)
[2017-02-01] MEDS ORDERED: CARDCD360 PO (16:16)
[2017-02-01] MEDS ORDERED: P10 PO (16:17)
[2017-02-01] MEDS ORDERED: ASAB PO (16:17)
[2017-02-01] MEDS ORDERED: VENTOLIN HFA INH (16:18)
[2017-02-01] MEDS ORDERED: CRESTOR10 PO (16:18)
[2017-02-01] MEDS ORDERED: SPIRIVA INH (16:19)
[2017-02-01] MEDS ORDERED: ULTRAM50 PO (16:19)
[2017-02-01] MEDS ORDERED: ALBUTEROL0.083 % INH (16:19)
[2017-02-01] MEDS ORDERED: T PO (16:20)
[2017-02-01] MEDS ORDERED: CALTRA600D PO (16:20)
[2017-02-01] MEDS ORDERED: ZYRTEC ALLGY10 MG PO (16:20)
[2017-02-01] MEDS ORDERED: VITAMIN D31000 UNIT PO (16:21)
[2017-02-01] MEDS ORDERED: NEXIUM40 PO (16:22)
[2017-02-01] MEDS ORDERED: FLORASTOR250 MG PO (16:22)
[2017-02-01] MEDS ORDERED: GENTEAL OPH (16:35)
[2017-02-01] MEDS ORDERED: NITROSTAT0.4 MG SL (16:38)
[2017-02-01 17:43] LABS: ALLENS TEST Pos; BE (BASE EXCESS) 3.8 MEQ/L (0 +/- 2.5); DEVICE vent; HCO3 (ACTUAL BICARBONATE) 28.7 MEQ/L (23-27); INSTRUMENT SERIAL # 8087; MODE CMV; OPERATOR ID 14335; PCO2 (CO2 TENSION) 44 MMHG (35-45); PO2 (O2 TENSION) 64 MMHG (79-93); SAMPLE Arterial; TIDAL VOLUME 400 ML; pH 7.43 (7.37-7.43)
[2017-02-01 17:47] LABS: HEMOGLOBIN 11.9 g/dL (12.0-16.0); MEAN CORPUS HGB CONC 31.5 g/dL (32.0-36.0); MEAN CORPUSCULAR HEMOGLOB 28.7 pg (26.0-34.0); MEAN CORPUSCULAR VOLUME 91.3 fL (80-100); MEAN PLATELET VOLUME 9.6 fL (9.2-13.0); PLATELET COUNT 306 10/3/uL (150-400); RBC DISTRIBUTION WIDTH 14.5 % (12.0-16.0); RED CELL COUNT 4.14 10/6/uL (4.0-5.6)
[2017-02-01 17:49] LABS: ER CBC TAT 0 Hrs 14 Mins; HEMATOCRIT 37.8 % (36.0-48.0); MANUAL DIFF YES %; WHITE BLOOD CELLS 27.4 10/3/uL (4.5-10.5)
[2017-02-01 17:52] LABS: INFLUENZA A SCREEN NEGATIVE (NEGATIVE); INFLUENZA B SCREEN NEGATIVE (NEGATIVE)
[2017-02-01 17:59] LABS: ALKALINE PHOSPHATASE 62 U/L (45-117); CALCIUM, SERUM 9.5 MG/DL (8.5-10.4); CHLORIDE, SERUM 103 MMOL/L (96-112); CO2 (CARBON DIOXIDE) 34 MMOL/L (24-34); CPK (IF ELEVATED MB BANDS) 509 U/L (0-200); GLOBULIN 3.1 G/DL (2.5-4.1); POTASSIUM, SERUM 3.7 MMOL/L (3.5-5.3); SGOT(AST) 38 U/L (5-40); SGPT(ALT) 21 U/L (5-65); SODIUM, SERUM 144 MMOL/L (135-148); TOTAL BILIRUBIN 0.7 MG/DL (0-1.2); TOTAL PROTEIN 6.1 G/DL (6.0-8.5)
[2017-02-01 18:02] LABS: BUN (BLOOD UREA NITROGEN) 29 MG/DL (6-23); CREATININE 2.03 MG/DL (0.55-1.02); GFR AFRICAN AMERICAN 27 ML/MIN (>=60); GFR NON AFRICAN AMERICAN 23 ML/MIN (>=60); GLUCOSE, SERUM 86 MG/DL (60-99)
[2017-02-01 18:07] LABS: BAND NEUTROPHILS 50 %; ER DIFF TAT 0 Hrs 32 Mins; IMMATURE GRANS ABSOLUTE (CALC) 0.55 10/3/uL (0.0-0.11); LYMPHOCYTES 4 %; METAMYELOCYTES 2 %; MONOCYTES 6 %; MONOCYTES ABSOLUTE (CALC) 1.64 10/3/uL (0.21-1.20); NEUTROPHILS ABSOLUTE (CALC) 24.11 10/3/uL (2.02-8.40); SEGMENTED NEUTROPHIL (0) 38 %; TOTAL NUCLEATED CELLS 100
[2017-02-01 18:08] LABS: PLATELET ESTIMATE ADQ (ADEQUATE); RBC MORPHOLOGY NORM (NORMAL)
[2017-02-01 18:59] LABS: CK-MB 10.7 NG/ML; CKMB INDEX (NOT ORD) 2.1
[2017-02-02 03:53] LABS: ALLENS TEST Pos; BE (BASE EXCESS) -0.6 MEQ/L (0 +/- 2.5); CARBOXYHEMOGLOBIN 1.2 % (0-3); HCO3 (ACTUAL BICARBONATE) 24.1 MEQ/L (23-27); HEMOBLOGIN CONTENT 11.3 G/DL (12-16); INSTRUMENT SERIAL # 8083; METHEMOGLOBIN 0.2 % (0-3); O2 CONTENT 15.2 VOL% (18-24); OPERATOR ID 16503; PCO2 (CO2 TENSION) 40 MMHG (35-45); PO2 (O2 TENSION) 86 MMHG (79-93); SAMPLE Arterial
[2017-02-02 04:38] LABS: MEAN CORPUS HGB CONC 30.6 g/dL (32.0-36.0); MEAN CORPUSCULAR HEMOGLOB 28.1 pg (26.0-34.0); MEAN CORPUSCULAR VOLUME 91.6 fL (80-100); MEAN PLATELET VOLUME 9.1 fL (9.2-13.0); PLATELET COUNT 257 10/3/uL (150-400); RBC DISTRIBUTION WIDTH 14.7 % (12.0-16.0)
[2017-02-02 04:45] LABS: INTERNATIONAL NORMAL RATI 1.9 UNITS (-)
[2017-02-02 04:46] LABS: PARTIAL THROMBO TIME 50.9 SEC (22.5-37.2)
[2017-02-02 04:51] LABS: HEMOGLOBIN 8.7 g/dL (12.0-16.0); MANUAL DIFF YES %; WHITE BLOOD CELLS 26.5 10/3/uL (4.5-10.5)
[2017-02-02 04:53] LABS: HEMATOCRIT 28.4 % (36.0-48.0)
[2017-02-02 05:02] LABS: A/G RATIO 0.8 (0.7-1.9); ALBUMIN 2.4 G/DL (3.5-5.0); ALKALINE PHOSPHATASE 56 U/L (45-117); CHLORIDE, SERUM 103 MMOL/L (96-112); CREATININE 2.38 MG/DL (0.55-1.02); GFR AFRICAN AMERICAN 22 ML/MIN (>=60); GFR NON AFRICAN AMERICAN 19 ML/MIN (>=60); GLOBULIN 3.2 G/DL (2.5-4.1); PHOSPHORUS, SERUM 5.4 MG/DL (2.5-4.5); SGOT(AST) 56 U/L (5-40); SGPT(ALT) 21 U/L (5-65); SODIUM, SERUM 141 MMOL/L (135-148); TOTAL BILIRUBIN 0.4 MG/DL (0-1.2); TOTAL PROTEIN 5.6 G/DL (6.0-8.5)
[2017-02-02 05:04] LABS: BUN (BLOOD UREA NITROGEN) 40 MG/DL (6-23); CALCIUM, SERUM 8.5 MG/DL (8.5-10.4); CO2 (CARBON DIOXIDE) 25 MMOL/L (24-34); GLUCOSE, SERUM 326 MG/DL (60-99); POTASSIUM, SERUM 4.5 MMOL/L (3.5-5.3); TROPONIN I 0.76 NG/ML (<0.05); ULTRASENSITIVE TSH 0.639 MCIU/ML (0.358-3.740)
[2017-02-02 05:11] LABS: BAND NEUTROPHILS 33 %; LYMPHOCYTES 4 %; LYMPHOCYTES ABSOLUTE (CALC) 1.06 10/3/uL (0.67-4.30); MONOCYTES 1 %; MONOCYTES ABSOLUTE (CALC) 0.27 10/3/uL (0.21-1.20); NEUTROPHILS ABSOLUTE (CALC) 25.18 10/3/uL (2.02-8.40); SEGMENTED NEUTROPHIL (0) 62 %; TOTAL NUCLEATED CELLS 100
[2017-02-02 05:12] LABS: PLATELET ESTIMATE ADQ (ADEQUATE); RBC MORPHOLOGY NORM (NORMAL)
[2017-02-02 09:19] LABS: % IRON SAT 2 % (20-50); IRON BINDING CAPACITY 315 MCG/DL (225-410); IRON, SERUM 6 MCG/DL (35-150)
[2017-02-03 05:01] LABS: HEMATOCRIT 29.8 % (36.0-48.0); HEMOGLOBIN 9.7 g/dL (12.0-16.0); MANUAL DIFF YES %; MEAN CORPUS HGB CONC 32.6 g/dL (32.0-36.0); MEAN CORPUSCULAR VOLUME 89.2 fL (80-100); MEAN PLATELET VOLUME 9.4 fL (9.2-13.0); PLATELET COUNT 238 10/3/uL (150-400); RBC DISTRIBUTION WIDTH 14.3 % (12.0-16.0); RED CELL COUNT 3.34 10/6/uL (4.0-5.6); WHITE BLOOD CELLS 22.5 10/3/uL (4.5-10.5)
[2017-02-03 05:15] LABS: CALCIUM, SERUM 8.9 MG/DL (8.5-10.4); CHLORIDE, SERUM 109 MMOL/L (96-112); CO2 (CARBON DIOXIDE) 28 MMOL/L (24-34); SODIUM, SERUM 145 MMOL/L (135-148)
[2017-02-03 05:17] LABS: BUN (BLOOD UREA NITROGEN) 32 MG/DL (6-23); CREATININE 1.02 MG/DL (0.55-1.02); GFR AFRICAN AMERICAN 61 ML/MIN (>=60); GFR NON AFRICAN AMERICAN 53 ML/MIN (>=60); GLUCOSE, SERUM 149 MG/DL (60-99); PHOSPHORUS, SERUM 2.1 MG/DL (2.5-4.5); POTASSIUM, SERUM 3.5 MMOL/L (3.5-5.3)
[2017-02-03 05:42] LABS: BAND NEUTROPHILS 4 %; LYMPHOCYTES 6 %; LYMPHOCYTES ABSOLUTE (CALC) 1.35 10/3/uL (0.67-4.30); MONOCYTES 3 %; MONOCYTES ABSOLUTE (CALC) 0.68 10/3/uL (0.21-1.20); NEUTROPHILS ABSOLUTE (CALC) 20.48 10/3/uL (2.02-8.40); PLATELET ESTIMATE ADQ (ADEQUATE); SEGMENTED NEUTROPHIL (0) 87 %; TOTAL NUCLEATED CELLS 100
[2017-02-03 05:43] LABS: RBC MORPHOLOGY NORM (NORMAL)
[2017-02-03 06:27] LABS: PROCALCITONIN 31.65 ng/mL (<0.5)
[2017-02-04 04:19] LABS: BASOPHILS 0.1 %; BASOPHILS ABSOLUTE 0.01 10/3/uL (0.0-0.16); EOSINOPHILS 0 %; HEMOGLOBIN 10.5 g/dL (12.0-16.0); IMMATURE GRANULOCYTES 0.4 %; IMMATURE GRANULOCYTES ABSOLUTE 0.06 10/3/uL (0.0-0.11); LYMPHOCYTES 2.8 %; LYMPHOCYTES ABSOLUTE 0.38 10/3/uL (0.67-4.30); MEAN CORPUS HGB CONC 31.7 g/dL (32.0-36.0); MEAN CORPUSCULAR HEMOGLOB 28.4 pg (26.0-34.0); MEAN CORPUSCULAR VOLUME 89.5 fL (80-100); MEAN PLATELET VOLUME 9.1 fL (9.2-13.0); MONOCYTES 2.7 %; MONOCYTES ABSOLUTE 0.36 10/3/uL (0.21-1.20); NEUTROPHILS ABSOLUTE 12.71 10/3/uL (2.02-8.40); PLATELET COUNT 259 10/3/uL (150-400); RBC DISTRIBUTION WIDTH 14.3 % (12.0-16.0); WHITE BLOOD CELLS 13.5 10/3/uL (4.5-10.5)
[2017-02-04 04:20] LABS: HEMATOCRIT 33.1 % (36.0-48.0); MANUAL DIFF NO %
[2017-02-04 04:32] LABS: CHLORIDE, SERUM 107 MMOL/L (96-112); CO2 (CARBON DIOXIDE) 29 MMOL/L (24-34); CREATININE 0.82 MG/DL (0.55-1.02); GFR AFRICAN AMERICAN 80 ML/MIN (>=60); GFR NON AFRICAN AMERICAN 69 ML/MIN (>=60); PHOSPHORUS, SERUM 2.2 MG/DL (2.5-4.5); SODIUM, SERUM 143 MMOL/L (135-148)
[2017-02-04 04:40] LABS: BUN (BLOOD UREA NITROGEN) 22 MG/DL (6-23); GLUCOSE, SERUM 219 MG/DL (60-99); POTASSIUM, SERUM 4.4 MMOL/L (3.5-5.3)
[2017-02-05 04:48] LABS: BASOPHILS 0 %; EOSINOPHILS 0 %; HEMATOCRIT 32.5 % (36.0-48.0); HEMOGLOBIN 10.5 g/dL (12.0-16.0); IMMATURE GRANULOCYTES 0.8 %; IMMATURE GRANULOCYTES ABSOLUTE 0.08 10/3/uL (0.0-0.11); LYMPHOCYTES 5.5 %; LYMPHOCYTES ABSOLUTE 0.57 10/3/uL (0.67-4.30); MEAN CORPUS HGB CONC 32.3 g/dL (32.0-36.0); MEAN CORPUSCULAR HEMOGLOB 28.4 pg (26.0-34.0); MEAN CORPUSCULAR VOLUME 87.8 fL (80-100); MEAN PLATELET VOLUME 8.9 fL (9.2-13.0); MONOCYTES 3.1 %; MONOCYTES ABSOLUTE 0.32 10/3/uL (0.21-1.20); NEUTROPHILS 90.6 %; NEUTROPHILS ABSOLUTE 9.36 10/3/uL (2.02-8.40); PLATELET COUNT 279 10/3/uL (150-400); RBC DISTRIBUTION WIDTH 14.5 % (12.0-16.0); WHITE BLOOD CELLS 10.3 10/3/uL (4.5-10.5)
[2017-02-05 04:51] LABS: MANUAL DIFF NO %
[2017-02-05 05:01] LABS: BUN (BLOOD UREA NITROGEN) 22 MG/DL (6-23); CALCIUM, SERUM 8.5 MG/DL (8.5-10.4); CHLORIDE, SERUM 106 MMOL/L (96-112); CREATININE 0.74 MG/DL (0.55-1.02); GFR AFRICAN AMERICAN 91 ML/MIN (>=60); GFR NON AFRICAN AMERICAN 78 ML/MIN (>=60); GLUCOSE, SERUM 201 MG/DL (60-99); POTASSIUM, SERUM 4.1 MMOL/L (3.5-5.3); SODIUM, SERUM 144 MMOL/L (135-148)
[2017-02-05 05:02] LABS: CO2 (CARBON DIOXIDE) 34 MMOL/L (24-34); PHOSPHORUS, SERUM 2.9 MG/DL (2.5-4.5)
[2017-02-06 04:43] LABS: BASOPHILS 0.1 %; BASOPHILS ABSOLUTE 0.01 10/3/uL (0.0-0.16); EOSINOPHILS 0.1 %; EOSINOPHILS ABSOLUTE 0.01 10/3/uL (0.0-0.53); HEMATOCRIT 33.5 % (36.0-48.0); HEMOGLOBIN 10.6 g/dL (12.0-16.0); IMMATURE GRANULOCYTES 1.1 %; IMMATURE GRANULOCYTES ABSOLUTE 0.14 10/3/uL (0.0-0.11); LYMPHOCYTES 11.2 %; LYMPHOCYTES ABSOLUTE 1.42 10/3/uL (0.67-4.30); MEAN CORPUS HGB CONC 31.6 g/dL (32.0-36.0); MEAN CORPUSCULAR HEMOGLOB 28.3 pg (26.0-34.0); MEAN CORPUSCULAR VOLUME 89.3 fL (80-100); MEAN PLATELET VOLUME 9.4 fL (9.2-13.0); MONOCYTES 8.8 %; MONOCYTES ABSOLUTE 1.12 10/3/uL (0.21-1.20); NEUTROPHILS 78.7 %; NEUTROPHILS ABSOLUTE 10.01 10/3/uL (2.02-8.40); PLATELET COUNT 299 10/3/uL (150-400); RBC DISTRIBUTION WIDTH 14.4 % (12.0-16.0); RED CELL COUNT 3.75 10/6/uL (4.0-5.6); WHITE BLOOD CELLS 12.7 10/3/uL (4.5-10.5)
[2017-02-06 04:44] LABS: MANUAL DIFF NO %
[2017-02-06 04:48] LABS: BUN (BLOOD UREA NITROGEN) 22 MG/DL (6-23); CALCIUM, SERUM 9.2 MG/DL (8.5-10.4); CHLORIDE, SERUM 105 MMOL/L (96-112); CO2 (CARBON DIOXIDE) 34 MMOL/L (24-34); CREATININE 0.86 MG/DL (0.55-1.02); GFR AFRICAN AMERICAN 76 ML/MIN (>=60); GFR NON AFRICAN AMERICAN 65 ML/MIN (>=60); PHOSPHORUS, SERUM 2.9 MG/DL (2.5-4.5); POTASSIUM, SERUM 3.8 MMOL/L (3.5-5.3); SODIUM, SERUM 145 MMOL/L (135-148)
[2017-02-06 04:49] LABS: GLUCOSE, SERUM 139 MG/DL (60-99)
[2017-02-06 05:25] LABS: PROCALCITONIN 4.31 ng/mL (<0.5)
[2017-02-07 06:39] LABS: BASOPHILS 0.1 %; BASOPHILS ABSOLUTE 0.01 10/3/uL (0.0-0.16); EOSINOPHILS 0.3 %; EOSINOPHILS ABSOLUTE 0.04 10/3/uL (0.0-0.53); HEMATOCRIT 35.2 % (36.0-48.0); HEMOGLOBIN 10.9 g/dL (12.0-16.0); IMMATURE GRANULOCYTES 1.6 %; IMMATURE GRANULOCYTES ABSOLUTE 0.19 10/3/uL (0.0-0.11); LYMPHOCYTES 16.3 %; LYMPHOCYTES ABSOLUTE 1.88 10/3/uL (0.67-4.30); MEAN CORPUSCULAR HEMOGLOB 27.5 pg (26.0-34.0); MEAN CORPUSCULAR VOLUME 88.9 fL (80-100); MEAN PLATELET VOLUME 9.2 fL (9.2-13.0); MONOCYTES 9.9 %; MONOCYTES ABSOLUTE 1.14 10/3/uL (0.21-1.20); NEUTROPHILS 71.8 %; NEUTROPHILS ABSOLUTE 8.26 10/3/uL (2.02-8.40); PLATELET COUNT 288 10/3/uL (150-400); RBC DISTRIBUTION WIDTH 14.7 % (12.0-16.0); RED CELL COUNT 3.96 10/6/uL (4.0-5.6); WHITE BLOOD CELLS 11.5 10/3/uL (4.5-10.5)
[2017-02-07 06:42] LABS: MANUAL DIFF NO %
[2017-02-07 06:50] LABS: BUN (BLOOD UREA NITROGEN) 23 MG/DL (6-23); CALCIUM, SERUM 8.9 MG/DL (8.5-10.4); CHLORIDE, SERUM 109 MMOL/L (96-112); CO2 (CARBON DIOXIDE) 36 MMOL/L (24-34); CREATININE 0.72 MG/DL (0.55-1.02); GFR AFRICAN AMERICAN 94 ML/MIN (>=60); GFR NON AFRICAN AMERICAN 81 ML/MIN (>=60); POTASSIUM, SERUM 3.6 MMOL/L (3.5-5.3); SODIUM, SERUM 140 MMOL/L (135-148)
[2017-02-07 06:52] LABS: GLUCOSE, SERUM 59 MG/DL (60-99)
[2017-02-08 04:13] LABS: BASOPHILS 0.1 %; BASOPHILS ABSOLUTE 0.01 10/3/uL (0.0-0.16); EOSINOPHILS 0.2 %; EOSINOPHILS ABSOLUTE 0.02 10/3/uL (0.0-0.53); HEMATOCRIT 36.4 % (36.0-48.0); HEMOGLOBIN 11.5 g/dL (12.0-16.0); IMMATURE GRANULOCYTES 1.7 %; IMMATURE GRANULOCYTES ABSOLUTE 0.21 10/3/uL (0.0-0.11); LYMPHOCYTES 12.7 %; LYMPHOCYTES ABSOLUTE 1.54 10/3/uL (0.67-4.30); MEAN CORPUS HGB CONC 31.6 g/dL (32.0-36.0); MEAN CORPUSCULAR HEMOGLOB 27.7 pg (26.0-34.0); MEAN CORPUSCULAR VOLUME 87.7 fL (80-100); MONOCYTES 7.3 %; MONOCYTES ABSOLUTE 0.88 10/3/uL (0.21-1.20); NEUTROPHILS ABSOLUTE 9.46 10/3/uL (2.02-8.40); PLATELET COUNT 308 10/3/uL (150-400); RBC DISTRIBUTION WIDTH 14.6 % (12.0-16.0); RED CELL COUNT 4.15 10/6/uL (4.0-5.6); WHITE BLOOD CELLS 12.1 10/3/uL (4.5-10.5)
[2017-02-08 04:15] LABS: MANUAL DIFF NO %
[2017-02-08 04:25] LABS: ALBUMIN 2.3 G/DL (3.5-5.0); BUN (BLOOD UREA NITROGEN) 35 MG/DL (6-23); CALCIUM, SERUM 9.1 MG/DL (8.5-10.4); CHLORIDE, SERUM 100 MMOL/L (96-112); CO2 (CARBON DIOXIDE) 37 MMOL/L (24-34); CREATININE 1.13 MG/DL (0.55-1.02); GFR AFRICAN AMERICAN 54 ML/MIN (>=60); GFR NON AFRICAN AMERICAN 47 ML/MIN (>=60); GLUCOSE, SERUM 146 MG/DL (60-99); PHOSPHORUS, SERUM 4.5 MG/DL (2.5-4.5); POTASSIUM, SERUM 3.9 MMOL/L (3.5-5.3); SODIUM, SERUM 143 MMOL/L (135-148)
[2017-02-09 04:20] LABS: ALBUMIN 2.3 G/DL (3.5-5.0); CALCIUM, SERUM 9.2 MG/DL (8.5-10.4); CHLORIDE, SERUM 98 MMOL/L (96-112); CO2 (CARBON DIOXIDE) 38 MMOL/L (24-34); GFR AFRICAN AMERICAN 42 ML/MIN (>=60); GFR NON AFRICAN AMERICAN 36 ML/MIN (>=60); PHOSPHORUS, SERUM 4.8 MG/DL (2.5-4.5); POTASSIUM, SERUM 3.5 MMOL/L (3.5-5.3); SODIUM, SERUM 139 MMOL/L (135-148)
[2017-02-09 04:21] LABS: BUN (BLOOD UREA NITROGEN) 40 MG/DL (6-23); GLUCOSE, SERUM 60 MG/DL (60-99)
[2017-02-10 05:43] LABS: BASOPHILS 0.1 %; BASOPHILS ABSOLUTE 0.01 10/3/uL (0.0-0.16); EOSINOPHILS 1.3 %; EOSINOPHILS ABSOLUTE 0.16 10/3/uL (0.0-0.53); HEMATOCRIT 33.1 % (36.0-48.0); HEMOGLOBIN 10.6 g/dL (12.0-16.0); IMMATURE GRANULOCYTES 1.6 %; IMMATURE GRANULOCYTES ABSOLUTE 0.19 10/3/uL (0.0-0.11); LYMPHOCYTES 14.2 %; LYMPHOCYTES ABSOLUTE 1.74 10/3/uL (0.67-4.30); MANUAL DIFF NO %; MEAN CORPUSCULAR HEMOGLOB 28.2 pg (26.0-34.0); MEAN PLATELET VOLUME 8.7 fL (9.2-13.0); MONOCYTES ABSOLUTE 0.73 10/3/uL (0.21-1.20); NEUTROPHILS 76.8 %; NEUTROPHILS ABSOLUTE 9.42 10/3/uL (2.02-8.40); PLATELET COUNT 287 10/3/uL (150-400); RBC DISTRIBUTION WIDTH 14.7 % (12.0-16.0); RED CELL COUNT 3.76 10/6/uL (4.0-5.6); WHITE BLOOD CELLS 12.3 10/3/uL (4.5-10.5)
[2017-02-10 05:54] LABS: CALCIUM, SERUM 8.5 MG/DL (8.5-10.4); CHLORIDE, SERUM 102 MMOL/L (96-112); CO2 (CARBON DIOXIDE) 36 MMOL/L (24-34); GFR AFRICAN AMERICAN 56 ML/MIN (>=60); GFR NON AFRICAN AMERICAN 48 ML/MIN (>=60); GLUCOSE, SERUM 58 MG/DL (60-99); POTASSIUM, SERUM 3.9 MMOL/L (3.5-5.3); SODIUM, SERUM 142 MMOL/L (135-148)
[2017-02-10 05:55] LABS: BUN (BLOOD UREA NITROGEN) 28 MG/DL (6-23)
[2017-02-11 06:10] LABS: BUN (BLOOD UREA NITROGEN) 23 MG/DL (6-23); CALCIUM, SERUM 8.8 MG/DL (8.5-10.4); CHLORIDE, SERUM 101 MMOL/L (96-112); CO2 (CARBON DIOXIDE) 35 MMOL/L (24-34); CREATININE 1.07 MG/DL (0.55-1.02); GFR AFRICAN AMERICAN 58 ML/MIN (>=60); GFR NON AFRICAN AMERICAN 50 ML/MIN (>=60); GLUCOSE, SERUM 148 MG/DL (60-99); POTASSIUM, SERUM 4.3 MMOL/L (3.5-5.3); SODIUM, SERUM 136 MMOL/L (135-148)
[2017-05-25] MEDS ORDERED: HALF81 PO (07:46)
[2017-05-25] MEDS ORDERED: ADVAIR250 INH (07:47)
[2017-05-25] MEDS ORDERED: ALBUTEROL0.083 % INH (07:47)
[2017-05-25] MEDS ORDERED: CALTRA600D PO (07:48)
[2017-05-25] MEDS ORDERED: DSS PO (07:48)
[2017-05-25] MEDS ORDERED: CULTURELLE1 EACH PO (07:48)
[2017-05-25] MEDS ORDERED: PRADAXA75 MG PO (07:49)
[2017-05-25] MEDS ORDERED: CARDCD180 PO (07:49)
[2017-05-25] MEDS ORDERED: NEUR100 PO (07:49)
[2017-05-25] MEDS ORDERED: DRONED400 PO (07:50)
[2017-05-25] MEDS ORDERED: AMARYL1 MG PO (07:50)
[2017-05-25] MEDS ORDERED: NEXIUM40 PO (07:50)
[2017-05-25] MEDS ORDERED: PRESERVISION A1 EACH PO (07:51)
[2017-05-25] MEDS ORDERED: KLOR-CON M2020 MEQ PO (07:51)
[2017-05-25] MEDS ORDERED: P10 PO (07:51)
[2017-05-25] MEDS ORDERED: SPIRIVA INH (07:52)
[2017-05-25] MEDS ORDERED: DEMA10T PO (07:52)
[2017-05-25] MEDS ORDERED: DALIRESP500 MCG PO (07:52)
[2017-05-25] MEDS ORDERED: CRESTOR10 PO (07:52)
[2017-05-25] MEDS ORDERED: VITC500 PO (07:54)
[2017-05-25] MEDS ORDERED: VITE PO (07:54)
[2017-05-25] MEDS ORDERED: [UNRECOGNIZED DRUG - MIXTURE] PO (07:55)
[2017-05-25] MEDS ORDERED: T PO (07:56)
[2017-05-25] MEDS ORDERED: ZYRTEC ALLGY10 MG PO (07:56)
[2017-05-25] MEDS ORDERED: ATV.5 PO (07:57)
[2017-05-25] MEDS ORDERED: ULTRAM50 PO (07:57)
[2017-05-25] MEDS ORDERED: VENTOLIN HFA INH (07:57)
[2017-05-25] MEDS ORDERED: ATRONASAL6 NAS (07:58)
== END 2017-02-11 14:11 | DRG 871 ==
LOC: ER 15:25 → IMCU 17:51 → 7NO 02-04 13:29
PROVIDERS: Hospitalist; Internal Medicine; Internal Medicine Clinical Cardiac Electrophysiology; Internal Medicine Interventional Cardiology; Nurse Practitioner; Physician Assistant Medical
PROC: 5A09357 Assistance with Respiratory Ventilation, Less than 24 Consecutive Hours, Continuous Positive Airway Pressure (ICD-10-PCS; principal; 2017-02-03)
DX: A41.9 Sepsis, unspecified organism (principal); J96.21 Acute and chronic respiratory failure with hypoxia; N17.9 Acute kidney failure, unspecified; G93.41 Metabolic encephalopathy; J15.9 Unspecified bacterial pneumonia; E11.22 Type 2 diabetes mellitus with diabetic chronic kidney disease; I48.2 Chronic atrial fibrillation; J44.0 Chronic obstructive pulmonary disease with (acute) lower respiratory infection; I47.1 Supraventricular tachycardia; E11.649 Type 2 diabetes mellitus with hypoglycemia without coma; J44.1 Chronic obstructive pulmonary disease with (acute) exacerbation; R65.20 Severe sepsis without septic shock; I25.10 Atherosclerotic heart disease of native coronary artery without angina pectoris; M35.00 Sjogren syndrome, unspecified; E78.5 Hyperlipidemia, unspecified; I12.9 Hypertensive chronic kidney disease with stage 1 through stage 4 chronic kidney disease, or unspecified chronic kidney disease; N18.2 Chronic kidney disease, stage 2 (mild); E11.65 Type 2 diabetes mellitus with hyperglycemia; D63.8 Anemia in other chronic diseases classified elsewhere; Z79.01 Long term (current) use of anticoagulants; Z95.5 Presence of coronary angioplasty implant and graft; Z92.21 Personal history of antineoplastic chemotherapy; Z86.010 Personal history of colon polyps; Z86.718 Personal history of other venous thrombosis and embolism; Z90.49 Acquired absence of other specified parts of digestive tract; Z87.891 Personal history of nicotine dependence; Z88.2 Allergy status to sulfonamides; Z99.81 Dependence on supplemental oxygen; Z95.828 Presence of other vascular implants and grafts; Z79.4 Long term (current) use of insulin; Z90.12 Acquired absence of left breast and nipple
CPT/HCPCS: 36600; 71010; 72170; 80048; 80053; 80069; 80202; 82550; 82553; 82805; 82962; 83540; 83550; 83605; 83735; 83880; 84100; 84145; 84443; 84466; 84484; 85025; 85610; 85730; 87040; 87070; 87205; 87449; 87641; 87804; 87880; 92610-GN; 93005; 93971; 94640; 94660; 94667; 94668; 96365; 96375; 97110-GO; 97161-GP; 97166-GO; 97530-GP; 97535-GO; 99291; A9270-GY; G8978-CL-GP; G8979-CJ-GP; G8987-CK-GO; G8988-CK-GO; G8989-CK-GO; G8996-CJ-GN; G8997-CJ-GN; G8998-CJ-GN; J0360; J0456; J0692; J1720; J2920; J3370